=== PATIENT | male | born 1955 | race Caucasian/White ===

== ENCOUNTER 2021-02-21 07:24 | Outpatient (CLI) | payer OTHER ==
--- NOTE | 2021-02-21 15:50 | XRAY Report ---
PROCEDURE: Wrist 4 View LT INDICATIONS: WRIST SPRAIN, LEFT TECHNIQUE: 4 views of the wrist were acquired. COMPARISON: None FINDINGS: Bones: No fractures or dislocations. No suspicious bony lesions. Scaphoid view: No visualized scaphoid fracture. Soft tissues: No suspicious soft tissue calcifications. IMPRESSION: No visualized acute fracture or dislocation. However, occult injury cannot be excluded. Recommend liz rt interval imaging follow-up in 7-10 days as clinically indicated for additional evaluation. Reviewed by: Neema Eddy MD on 02/21/2021 3:49 PM PDT Approved by: Neema Eddy MD on 02/21/2021 3:49 PM PDT Station ID: [id number]
== END 2021-02-21 23:59 | disposition home or self-care (01) ==
LOC: DI.N 07:24
PROVIDERS: ATTEND Family Medicine
DX: S63.502A Unspecified sprain of left wrist, initial encounter (principal)